=== PATIENT | male | born 1990 | race Caucasian/White ===

== ENCOUNTER 2016-10-22 12:16 | Emergency (ER) | payer OTHER ==
[2016-10-22 12:37] VITALS: BP 126/65; PULSE 69; TEMP 98.1; BMI 23.7
[2016-10-22 13:25] LABS: URINE APPEARANCE CLEAR; URINE BILIRUBIN NEGATIVE (NEGATIVE); URINE BLOOD NEGATIVE (NEGATIVE); URINE COLOR STRAW; URINE GLUCOSE (UA) NEGATIVE (NEGATIVE); URINE KETONE NEGATIVE (NEGATIVE); URINE LEUK ESTERASE NEGATIVE (NEGATIVE); URINE NITRITE NEGATIVE (NEGATIVE); URINE PROTEIN NEGATIVE (NEGATIVE); URINE UROBILINOGEN NEGATIVE E.U./dl (0.2-1.0)
--- NOTE | 2016-10-22 14:39 | PDOC ---
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 Pt denies penile discharge. Pt c/o right lower back to flank and suprapubic pain comes and goes. Pt denies fever neg nvd neg constipaion or rectal pain . 10/22/16 15:54 Quality: reports: burning Abdominal Pain Onset Location: reports: suprapubic Pain Radiation: reports: flank Activities at Onset: reports: none Past History - Past Medical History Allergies/Adverse Reactions: Allergies Allergy/AdvReac Type Severity Reaction Status Date / Time No Known Allergies Allergy Verified 10/22/16 12:33 Home Medications: Ambulatory Orders NK [No Known Home Medication] 10/22/16 Disorders: Yes (genital herpes) Other medical history: none - Immunization History Immunization Up to Date: No - Psycho/Social/Smoking Cessation Hx Anxiety: No Suicidal Ideation: No Smoking Status: No Smoking History: Never smoked Number of Cigarettes Smoked Daily: 0 Information on smoking cessation initiated: No Hx Alcohol Use: No Drug/Substance Use Hx: No Substance Use Type: Marijuana Abd/GI Specific PMHX - Complaint Specific PMHX Colitis: No Diverticulitis: No Gall Bladder Disease: No GERD: No Hepatitis: No Irritable Bowel Synd (IBS): No Pancreatitis: No GI Ulcer Disease: No Review of Systems - Review of Systems Able to Perform ROS?: Yes Is the patient limited Ug[place]an proficient: Yes Constitutional: No: Symptoms Reported HEENTM: No: Symptoms Reported Respiratory: No: Symptoms reported Cardiac (ROS): No: Symptoms Reported ABD/GI: No: Symptoms Reported : Yes: See HPI Musculoskeletal: No: Symptoms Reported Integumentary: No: Symptoms Reported Neurological: No: Symptoms reported *Physical Exam - Vital Signs Last Vital Signs Temp Pulse Resp BP Pulse Ox 98.1 F 69 18 126/65 100 10/22/16 12:35 10/22/16 12:35 10/22/16 12:35 10/22/16 12:35 10/22/16 12:35 - Physical Exam General Appearance: Yes: Nourished, Appropriately Dressed HEENT: positive: EOMI, ANKUR Neck: positive: Supple. negative: Tender Respiratory/Chest: positive: Lungs Clear, Normal Breath Sounds Cardiovascular: positive: Regular Rhythm, Regular Rate Gastrointestinal/Abdominal: positive: Normal Bowel Sounds, Soft. negative: Tender Male Genitalia: positive: normal genitalia. negative: discharge, testicular tenderness, epididymus tender, inguinal hernia, hernia, CVAT Rectal Exam: positive: deferred (pt refused ) Lymphatic: negative: Adenopathy Musculoskeletal: positive: Normal Inspection Extremity: positive: Normal Capillary Refill, Normal Inspection, Normal Range of Motion Integumentary: positive: Normal Color, Dry, Warm Neurologic: positive: Fully Oriented, Alert, Normal Mood/Affect, Normal Response , Motor Strength 09/07 ED Treatment Course - ADDITIONAL ORDERS Additional order review: Laboratory Results 10/22/16 12:43 Urine Color Straw Urine Appearance Clear Urine pH 8.0 Urine Protein Negative Urine Glucose (UA) Negative Urine Ketones Negative Urine Blood Negative Urine Nitrite Negative Urine Bilirubin Negative Urine Urobilinogen Negative Ur Leukocyte Esterase Negative Medical Decision Making - Medical Decision Making 10/22/16 14:43 cc: urinary burning, one week urgency and flank pain to suprapubic pain pt admits to one sexual partner in the past 3 months pt states he has history of herpes denies other STD history pt denies nvd no fever denies any drainage from the penis will send culutres, UA renal US r/o renal colic or mass will treat prophylacticaly for STD cultures pending (PT REFUSED TO BE TREATED TODAY, WANTS TO WAIT FOR THE RESULTS) pt given all the dc instructions via associate chief nurse 10/22/16 16:03 10/22/16 16:17 *DC/Admit/Observation/Transfer Diagnosis at time of Disposition: Dysuria - Discharge Dispostion Disposition: HOME Condition at time of disposition: Good - Referrals Referrals: Nicholas Mcclure MD., MD [Staff Physician] - - Patient Instructions Additional Instructions: you have NOT been treated today for possible genital infections, the cultures will be resulted in a few days we will call you with any POSITIVE results. Please continue your evaluation and follow up with the urologist if your symptoms continue and do not improve in 2-3 days Return to ER for any worsening symptoms Usted mercedes sido tratado hoy para las infecciones genitales posibles, las culturas sern resultado en algunos ramos le llamaremos con cualquier resultado POSITIVO. Contine con sorenson evaluacin y realice el seguimiento con el urlogo si glenroy sntomas continan y no mejoran en 2-3 ramos Regreso a ER para cualquier empeoramiento de los sntomas
[2016-10-22] MEDS ORDERED: AZITHROMYCIN 1 GM PACKET PO ONE (15:54)
[2016-10-22] MEDS ORDERED: AZITHROMYCIN 1 GM PACKET ONE (16:05)
== END 2016-10-22 16:21 | disposition home or self-care (01) ==
LOC: JERFT 12:16
DX: R30.0 Dysuria (principal); Z87.438 Personal history of other diseases of male genital organs
CPT/HCPCS: 36415; 76775-TC; 81003; 87086; 87491; 87591; 99281-25